=== PATIENT | male | born 1950 | race Caucasian/White ===

== ENCOUNTER 2017-07-22 05:46 | Inpatient (IN) | payer MEDICARE ==
[2017-07-22] VITALS (29 sets, daily range): BP systolic 107–151; BP diastolic 52–69; PULSE 50–130; RESP 14–50
[~2017-07-22] VITALS: Ht 182.9 cm; Wt 123.7 kg
[2017-07-22] MEDS ORDERED: CEFAZOLIN 2 GM/50 ML (PMX) 50 ML IVPB ONE (06:11)
[2017-07-22] MEDS ORDERED: LACTATED RINGER'S 1,000 ML IV* SCH (06:11)
--- NOTE | 2017-07-22 06:43 | HPN ---
Date/Time of Note Date/Time of Note DATE: 07/22/17 TIME: 06:43 Interval H&P Admission Note Pt. seen H&P reviewed: No system changes KEVEN BAZAN MD Jul 22, 2017 06:43
[2017-07-22] MEDS ORDERED: SUCCINYLCHOLINE CHLORIDE 100 MG/5 ML SYG IV ONE (07:00)
[2017-07-22] MEDS ORDERED: ROCURONIUM 50 MG INJ ONE ×2 (07:00→07:27)
[2017-07-22] MEDS ORDERED: ACETAMINOPHEN 1000 MG/100 ML IVPB ONE (07:00)
[2017-07-22] MEDS ORDERED: GELATIN SIZE 100 SPONGE ONE (07:02)
[2017-07-22] MEDS ORDERED: THROMBIN 5000 UNIT VIAL ONE ×2 (07:03→09:00)
[2017-07-22] MEDS ORDERED: BUPIVACAINE 0.5%/EPI (SDV) 30 ML INJ ONE ×2 (07:03→13:49)
[2017-07-22] MEDS ORDERED: LIDOCAINE 2%/EPI 30 ML INJ ONE (07:07)
[2017-07-22] MEDS ORDERED: METF500T PO (07:18)
[2017-07-22] MEDS ORDERED: PREG50CA PO (07:18)
[2017-07-22] MEDS ORDERED: HYDR-902 PO (07:18)
[2017-07-22] MEDS ORDERED: AMLO-314 PO (07:18)
[2017-07-22] MEDS ORDERED: [UNRECOGNIZED DRUG - CODE] PO (07:18)
[2017-07-22] MEDS ORDERED: POLYMYXIN/BACITRACIN 1L IRRIG ONE (07:20)
[2017-07-22] MEDS ORDERED: LIDOCAINE 1% (MDV) 20 ML INJ ONE (07:27)
[2017-07-22] MEDS ORDERED: PROPOFOL 20 ML ONE (07:27)
[2017-07-22] MEDS ORDERED: HEMOSTATIC MATRIX SYG ZFS ONE (09:52)
[2017-07-22] MEDS ORDERED: METOCLOPRAMIDE 10 MG INJ ONE (10:08)
[2017-07-22] MEDS ORDERED: ONDANSETRON 4 MG INJ ONE (10:08)
[2017-07-22] MEDS ORDERED: FAMOTIDINE 20 MG INJ ONE (10:09)
[2017-07-22] MEDS ORDERED: ONDANSETRON 4 MG INJ IV PRN ×2 (12:30→14:30)
[2017-07-22] MEDS ORDERED: hydrALAzine 20 MG INJ IV PRN (12:30)
[2017-07-22] MEDS ORDERED: HYDROmorphONE (0.2 MG/ML) 10ML SYG IV PRN (12:30)
[2017-07-22] MEDS ORDERED: MEPERIDINE 25 MG INJ IV PRN (12:30)
[2017-07-22] MEDS ORDERED: HALOPERIDOL 5 MG INJ IV PRN (12:30)
[2017-07-22] MEDS ORDERED: LABETALOL HCL 20MG INJ IV PRN (12:30)
[2017-07-22] MEDS ORDERED: PROCHLORPERAZINE 10 MG INJ IV PRN (12:30)
[2017-07-22] MEDS ORDERED: SUGAMMADEX SODIUM 200 MG/2 ML VIAL IV ONE (14:04)
[2017-07-22] MEDS ORDERED: CEFAZOLIN 1 GM INJ ONE (14:12)
[2017-07-22] MEDS ORDERED: DEXTROSE 5%-0.45% NACL 1,000 ML IV SCH (14:28)
[2017-07-22] MEDS ORDERED: NALOXONE (0.4 MG/ML) INJ IV PRN (14:30)
[2017-07-22] MEDS ORDERED: ZOLPIDEM 5 MG TAB PO PRN (14:30)
[2017-07-22] MEDS ORDERED: HYDROmorphONE 0.2 MG/ML PCA IV SCH (14:30)
[2017-07-22] MEDS ORDERED: PROCHLORPERAZINE 10 MG INJ IM PRN (14:30)
[2017-07-22] MEDS ORDERED: NACL 0.9% 3 ML SYG IV SCH (14:30)
--- NOTE | 2017-07-22 14:44 | SIPON ---
Date/Time of Note Date/Time of Note DATE: 07/22/17 TIME: 14:38 Operative Report Preoperative Diagnosis Spinal stenosis, L2-L3, L3-L4, right greater than left. Postoperative Diagnosis Same Operation/Procedure Performed Lumbar yang, L2-L3, L3-L4, bilat, from R MIS approach Surgeon see signature line television production assistant Bernadette Anesthesia: general Estimated blood loss: 0 - 10 ml's Transfusion Required none Specimen none Grafts/Implants none Complications none KEVEN BAZAN MD Jul 22, 2017 14:44
[2017-07-22] MEDS: HYDROmorphONE (0.2 MG/ML) 10ML SYG IV PRN ×3 (14:47→15:06)
--- NOTE | 2017-07-22 14:58 | OPR ---
Date/Time of Note Date/Time of Note DATE: 07/22/17 TIME: 14:47 Operative Report Procedure Date: Jul 22, 2017 Preoperative Diagnosis Spinal stenosis, L2-L3, L3-L4, bilaterally right greater than left Postoperative Diagnosis Same as above Operation/Procedure Performed Lumbar laminectomy, L2-L3 L3-L4, bilateral, from right MIS paraspinal approach Surgeon see signature line City Collector Jj Fleming Anesthesia Type: general Estimated Blood Loss: 0 - 10 ml's Transfusion none Specimen none Grafts/Implants none Tubes/Drains none Complications none Pt Condition Post Procedure: stable Disposition: PACU Indications Intractable leg pain, right leg primarily. Procedure Description The patient was identified in the holding unit and his questions were answered. He was taken to the operating room and given a general endotracheal anesthetic. Appropriate lines were placed. Neural monitoring was commenced. He was carefully positioned on the Nazario spinal table. Several image intensification x-rays were taken to localize the appropriate skin incision. He was then prepped and draped in the usual manner. From 3 cm to the right of the midline, a 3 cm incision was made and taken down to the fascia. The fascia was divided sharply. I used blunt dissection to find the L2-L3 right-sided facet. I then used a docking pin. And dilators. I placed a 7 cm expandable tube into place and fastened it. X-rays were taken to confirm that this was the L2-L3 location. The facet joint was then isolated medially and drilled down to the lamina. Beginning inferiorly the lamina was drilled along with a inferior facet of L2. This was taken down to the ligamentum flavum and out as far as the pedicle. The superior facet was isolated and Kerrison punches were used to go laterally to the level of the pedicle. Laminectomy was carried out proximally until well above the disc space, above where the ligamentum flavum ended. Drilling was carried out across the midline. The ligamentum flavum was left in place while the bony work was being done. Ligamentum flavum was then removed except for small portions at the periphery of the decompression. Once this happened to the neural signaling started to improve dramatically. The remaining ligament under the facet, inferiorly to the bottom of the pedicle and superiorly to the top of the arch of tube was removed. Additional ligament well across the midline was removed. By this time this signals at L2 and L3 had returned to normal. This portion of the wound was irrigated and Surgifoam was inserted in small quantities. The retractor was then carefully repositioned over the L3-L4 interspace again on the right side. This was fairly laborious because we were desirous of keeping the skin incision at 3 cm. The L3-L4 facet was visualized, location was confirmed, and the medialmost portion of the was drilled off as well as a portion of the inferior facet in total. Drill was then used to go distally on L 4 to the area of the pedicle, laterally to the pedicle, and superiorly to well above a large bulging hard disc. Bony work was then taken across the midline. The ligament was then removed in large pieces and the peripheral areas of the laminotomy were cleansed of ligament and 4 directions. During this time we were told that the neural monitoring returned to normal at the L4 level. The wound was then irrigated copiously. Number 1 Vicryl was used for the fascia. Both layers of the fascia were closed together with [id number]. Subcutaneous tissue was closed with 0 Vicryl. 2 oh was used for subcuticular layer. Monocryl was used for the skin and this was reinforced with Dermabond. The patient tolerated the procedure well. We were told that the various counts were correct. Blood loss was less than 10 cc there were no complications KEVEN BAZAN MD Jul 22, 2017 14:58
[2017-07-22] MEDS ORDERED: FENTAnyl 50 MCG/ML VIAL ONE (15:08)
[2017-07-22] MEDS: FENTAnyl 50 MCG/ML VIAL IV PRN ×2 (15:26→16:01)
[2017-07-22] MEDS ORDERED: FENTAnyl 50 MCG/ML VIAL IV PRN ×2 (15:30)
--- NOTE | 2017-07-22 16:22 | RADRPT ---
PROCEDURE: XR Chest. CLINICAL INDICATION: central line placement ( patient in PACU ) TECHNIQUE: AP view of the chest were obtained. COMPARISON: None. FINDINGS: There are low lung volumes bilaterally causing exaggeration of the cardiac silhouette . There is bib asilar atelectasis. No evidence of pleural effusion or pneumothorax. There is a right internal jugul ar central venous catheter with the tip in the right atrium. IMPRESSION: Right internal jugular central venous catheter within the right atrium. No evidence of pneumothorax. Low lung volumes and bilateral basilar compressive atelectasis. RPTAT: GG .Mabel Gutiérrez MD, Date Time Electronically viewed and signed by .Mabel Gutiérrez MD, MD on 07/22/2017 16:22 .G/
--- NOTE | 2017-07-22 16:34 | RADRPT ---
PROCEDURE: Intraoperative imaging of the lumbar spine with fluoroscopy. CLINICAL INDICATION: Back pain. Intraoperative. TECHNIQUE: 15 images of the lumbar spine were obtained in the operating room with an image intensi fier. No radiologist was in attendance. Fluoroscopy time is 33 seconds. COMPARISON: No prior study is available for comparison. FINDINGS: Images demonstrate multiple surgical instruments overlying the lumbar spine posteriorly. IMPRESSION: 1. Intraoperative imaging of the lumbar spine. RPTAT: QQ .Félix Escobar MD, MD Date Time Electronically viewed and signed by .Félix Escobar MD, on 07/22/2017 16:34 .R/
[2017-07-22] MEDS: INSULIN ASPART [NOVOLOG] 3 ML PEN SC SCH ×2 (17:55→21:00)
[2017-07-22] MEDS ORDERED: GLUCOSE GEL 15 GRAM TUBE BUCCAL PRN (18:00)
[2017-07-22] MEDS ORDERED: GLUCAGON 1 MG INJ IM PRN (18:00)
[2017-07-22] MEDS ORDERED: GLUCOSE GEL 15 GRAM TUBE PO PRN ×2 (18:00)
[2017-07-22] MEDS ORDERED: DEXTROSE 50% 50 ML SYRINGE IV PRN ×2 (18:00)
[2017-07-22] MEDS: SOD CHLORIDE 0.45% 1,000 ML IV SCH (18:41)
[2017-07-22] MEDS: CEFAZOLIN 1 GM/50 ML (PMX) 50 ML IVPB SCH (18:42)
[2017-07-22] MEDS: ACCU-CHEK XX SCH (19:55)
[2017-07-22] MEDS: PREGABALIN 25 MG CAP PO SCH (20:47)
[2017-07-22] MEDS: ACETAMINOPHEN 325 MG TAB PO PRN (22:40)
[2017-07-23] MEDS: CEFAZOLIN 1 GM/50 ML (PMX) 50 ML IVPB SCH ×3 (00:22→12:18)
[2017-07-23 00:24] VITALS: BP 130/68; RESP 18
[2017-07-23] MEDS: ACCU-CHEK XX SCH ×4 (02:00→19:28)
[2017-07-23] MEDS ORDERED: ACCU-CHEK XX SCH (02:00)
[2017-07-23] MEDS ORDERED: ALPRAZOLAM 0.25 MG TAB PO ONE (04:00)
[2017-07-23] MEDS: SOD CHLORIDE 0.45% 1,000 ML IV SCH (04:59)
[2017-07-23 05:00] VITALS: BP 143/67; PULSE 76; RESP 18
[2017-07-23 08:00] VITALS: BP 147/67; PULSE 81; RESP 17
[2017-07-23] MEDS: HYDROCODONE/APAP (10/325) TAB PO PRN ×2 (08:51→13:08)
[2017-07-23] MEDS: HYDROCHLOROTHIAZIDE 25 MG TAB PO SCH (08:51)
[2017-07-23] MEDS: VALSARTAN 160 MG TAB PO SCH (08:51)
[2017-07-23] MEDS: ASCORBIC ACID 500 MG TAB PO SCH ×2 (08:51→20:45)
[2017-07-23] MEDS: metFORMIN 500 MG TAB PO SCH (08:51)
[2017-07-23] MEDS: DOCUSATE SODIUM 100 MG CAP PO SCH ×2 (08:51→20:44)
[2017-07-23] MEDS: AMLODIPINE 10 MG TAB PO SCH (08:51)
[2017-07-23] MEDS: PREGABALIN 25 MG CAP PO SCH ×2 (08:52→20:45)
[2017-07-23] MEDS: INSULIN ASPART [NOVOLOG] 3 ML PEN SC SCH ×4 (09:10→20:47)
--- NOTE | 2017-07-23 13:48 | CONS ---
Date/Time of Note Date/Time of Note DATE: 07/23/17 TIME: 13:38 Assessment/Plan Assessment/Plan Problems: (1) Migraine syndrome Status: Chronic Comment: This gentleman has never received prophylactic therapy and has more than 10 headache days per month. As such this gives us an opportunity to treat not only his sciatica from the pinched nerves in his back but also his migraine syndrome. Lyrica would not be my first choice here and given his body habitus I believe the topiramate would actually be an appropriate candidate medication here. In addition to that we can add in a try cyclic antidepressant and a subsequent time using drugs such as desipramine or any imipramine as indicated. (2) S/P lumbar laminectomy Onset Date: ~ 07/22/2017 Status: Acute Comment: Postoperatively he is doing well without complications. Because the extent of the surgery is going to be somewhat slow to get up and around should ultimately be a good rehabilitation candidate (3) Obstructive sleep apnea hypopnea, moderate Status: Chronic Comment: Noted. He declines to have a CPAP here in the hospital. (4) Essential hypertension Status: Chronic Comment: We will continue him on his medications here the particular product and uses a combination of medications that are available on here formulary specifically amlodipine valsartan and hydrochlorothiazide (5) Diabetes mellitus type 2 in obese Status: Chronic Comment: He is stable on medication regimen we took the dextrose out of his IV fluids (6) Obesity (BMI 30-39.9) Status: Chronic Comment: Calorie restriction diet Consultation Date/Type/Reason Admit Date/Time Jul 22, 2017 at 05:46 Date of Consultation: Jul 22, 2017 Type of Consultation: Internal medicine-endocrinolog Reason for Consultation Postoperative medical management of medical problems Referring Provider: KEVEN BAZAN MD Hx of Present Illness 66-year-old gentleman status post spinal surgery. He is seen on the floor after surgery. Please note that he was cleared for surgery his primary care physicians near his home. Constitutional: no complaints Eyes: no complaints ENT: no complaints Respiratory: no complaints Cardiovascular: no complaints Gastrointestinal: no complaints Genitourinary: no complaints Musculoskeletal: back pain Skin: no complaints Neurologic: other Endocrine: no complaints Lymphatic: no complaints Psychological: nl mood/affect, no complaints Immunologic: no complaints Past Medical History Medical History: diabetes, high cholesterol, hypertension, other (Migraine syndrome; diabetic peripheral neuropathy; obstructive sleep apnea; obesity; usual childhood diseases; history chickenpox) Past Surgical History Past Surgical Hx: cholecystectomy, other (Status post bilateral carpal tunnel release twice on the right-hand side; status post left shoulder arthroscopy;) Family History Significant Family History: cancer, diabetes, hypertension Social History Alcohol Use: none Smoking Status: Former smoker Drug Use: none Other Social History 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 and lives with his spouse Exam/Review of Systems Vital Signs Vitals Vital Signs Date Time Temp Pulse Resp B/P Pulse Ox O2 Delivery O2 Flow Rate FiO2 07/23/17 08:00 98.4 81 17 147/67 97 Room Air 07/22/17 20:00 2.0 Intake and Output 07/22/17 07/22/17 07/23/17 15:00 23:00 07:00 Intake Total 3050 ml 1600 ml Output Total 650 ml 550 ml 1500 ml Balance 2400 ml -550 ml 100 ml Exam Constitutional: alert, oriented Head: atraumatic, normocephalic Eyes: EOMI, PERRL, nl conjunctiva, nl lids, nl sclera ENMT: mucosa pink and moist, nl external ears & nose, nl lips & teeth, nl nasal mucosa & septum Neck: non-tender, other (Right neck internal jugular central venous catheter.) , supple Respiratory: clear to auscultation, normal air movement Cardiovascular: nl pulses, regular rate and rhythm Gastrointestinal: nl liver, spleen, non-tender, soft Extremities: normal pulses Neurological: ENROBING MACHINE FEEDER II-XII intact, nl mental status, nl speech, other (Able to move lower extremities with limitations.) Skin: nl turgor, rash or lesions Results Results 24 hrs Laboratory Tests Test 07/22/17 18:49 07/22/17 20:46 07/23/17 08:54 07/23/17 10:50 Bedside Glucose 164 159 152 177 Test 07/23/17 12:56 Bedside Glucose 139 Medications Medications Outpatient medication regimen Metformin 500 twice daily; Exforge nightly; hydrocodone as needed; Lyrica 50 mg bid Current Medications Lactated Ringer's (Lr) 1,000 ml @ 25 mls/hr Q24H IV* ; Start 07/22/17 at 06:11 ; Stop 07/23/17 at 22:10 Zolpidem Tartrate (Ambien) 5 mg HS PRN PO INSOMNIA; Start 07/22/17 at 14:30 Prochlorperazine (Compazine Inj) 10 mg Q4H PRN IM NAUSEA AND/OR VOMITING; Start 07/22/17 at 14:30 Ondansetron HCl (Zofran Inj) 4 mg Q6H PRN IV NAUSEA AND/OR VOMITING; Start 07/22/17 at 14:30 Docusate Sodium (Colace) 100 mg BID PO Last administered on 07/23/17 08:51; Admin Dose 100 MG; Start 07/23/17 at 09:00 Acetaminophen (Tylenol Tab) 650 mg Q4H PRN PO TEMP GREATER THAN 101F OR MCKENNA Last administered on 07/22/17 22:40; Admin Dose 650 MG; Start 07/22/17 at 14:30 Ascorbic Acid (Vitamin C) 1,000 mg BID PO Last administered on 07/23/17 08:51 ; Admin Dose 1,000 MG; Start 07/23/17 at 09:00 Hydromorphone HCl (Dilaudid INVERFORM MACHINE OPERATOR) Q4PCA IV Last administered on 07/22/17 15:21 ; Admin Dose 6 MG; Start 07/22/17 at 14:30 Naloxone HCl (Narcan) 0.2 mg Q2M PRN IV RR 8 BREATHS/MIN OR LESS; Start at 14:30 Diagnostic Test (Pha) (Accu-Chek) 1 ea 02 XX ; Start 07/23/17 at 02:00 Pregabalin (Lyrica) 50 mg BID PO Last administered on 07/23/17 08:52; Admin Dose 50 MG; Start 07/22/17 at 21:00 Miscellaneous Information 1 ea NOTE XX ; Start 07/22/17 at 18:00 Glucose (Glutose) 15 gm Q15M PRN PO DECREASED GLUCOSE; Start 07/22/17 at 18:00 Glucose (Glutose) 22.5 gm Q15M PRN PO DECREASED GLUCOSE; Start 07/22/17 at 18: 00 Dextrose (D50w Syringe) 25 ml Q15M PRN IV DECREASED GLUCOSE; Start 07/22/17 at 18:00 Dextrose (D50w Syringe) 50 ml Q15M PRN IV DECREASED GLUCOSE; Start 07/22/17 at 18:00 Glucagon (Glucagen) 1 mg Q15M PRN IM DECREASED GLUCOSE; Start 07/22/17 at 18:00 Glucose (Glutose) 15 gm Q15M PRN BUCCAL DECREASED GLUCOSE; Start 07/22/17 at 18 :00 Amlodipine Besylate (Norvasc) 10 mg DAILY PO Last administered on 07/23/17 08: 51; Admin Dose 10 MG; Start 07/23/17 at 09:00 Valsartan (Diovan) 320 mg DAILY PO Last administered on 07/23/17 08:51; Admin Dose 320 MG; Start 07/23/17 at 09:00 Hydrochlorothiazide (Hydrochlorothiazide) 25 mg DAILY PO Last administered on 07/23/17 08:51; Admin Dose 25 MG; Start 07/23/17 at 09:00 Acetaminophen/ Hydrocodone Bitart (Downs (10/325)) 1 tab Q4H PRN PO PAIN; Start 07/23/17 at 07:30 Acetaminophen/ Hydrocodone Bitart (Downs (10/325)) 2 tab Q4H PRN PO PAIN Last administered on 07/23/17 13:08; Admin Dose 2 TAB; Start 07/23/17 at 07:30 Copies To: CC: KEVEN BAZAN MD, JOSHUA A MD Jul 23, 2017 13:48
[2017-07-23] MEDS ORDERED: TOPIRAMATE 25 MG TAB PO ONE (14:00)
[2017-07-23] MEDS: oxyCODONE 5 MG TAB PO PRN ×2 (18:56→23:02)
[2017-07-23] MEDS: TOPIRAMATE 25 MG TAB PO SCH (20:44)
[2017-07-23 21:05] VITALS: BP 155/67; RESP 18
[2017-07-24] MEDS: HYDROCODONE/APAP (10/325) TAB PO PRN ×6 (00:43→21:36)
[2017-07-24] MEDS ORDERED: SUMATRIPTAN 50 MG TAB PO ONE (01:00)
[2017-07-24] MEDS ORDERED: ALPRAZOLAM 0.25 MG TAB PO ONE (01:00)
[2017-07-24] MEDS ORDERED: CEPASTAT LOZENGE MT PRN (01:00)
[2017-07-24] MEDS: ACCU-CHEK XX SCH ×4 (01:41→20:24)
[2017-07-24] MEDS: oxyCODONE 5 MG TAB PO PRN ×2 (03:03→07:12)
--- NOTE | 2017-07-24 07:14 | CONS ---
Date/Time of Note Date/Time of Note DATE: 07/24/17 TIME: 07:11 Assessment/Plan Assessment/Plan Chief Complaint/Hosp Course 66-year-old gentleman status post spinal surgery. He is seen on the floor after surgery. Please note that he was cleared for surgery his primary care physicians near his home. Problems: (1) Migraine syndrome Status: Chronic Comment: He is on topiramate successfully. He had a positive response to Imitrex last night. I have given him and his information about how to research treatments and therapeutics for migraine syndrome. Ultimately he should have his topiramate titrated and probably would actually do well to have a low dose of the try cyclic antidepressant such as imipramine 25 mg nightly. (2) S/P lumbar laminectomy Onset Date: ~ 07/22/2017 Status: Acute Comment: Recuperating from spinal surgery and progressing well. No apparent complications. (3) Obstructive sleep apnea hypopnea, moderate Status: Chronic Comment: Noted. (4) Essential hypertension Status: Chronic Comment: Adequate control. (5) Diabetes mellitus type 2 in obese Status: Chronic Comment: Adequate control. (6) Obesity (BMI 30-39.9) Status: Chronic Comment: Calorie restriction diet. In addition the topiramate for migraines will be of assistance here. Consultation Date/Type/Reason Admit Date/Time Jul 22, 2017 at 05:46 Initial Consult Date 07/22/17 Type of Consultation: Internal medicine-endocrinolog Reason for Consultation Postop assistance with diabetes mellitus type 2; migraine syndrome Referring Provider: KEVEN BAZAN MD 24 HR Interval Summary Free Text/Dictation Patient reports that his migraines have been running at her normal pace and he actually has uses narcotic pain medications for that as well as his postoperative pain. He has never ever had Imitrex before so we administered it last night Constitutional: no complaints Detailed Summary Respiratory: no complaints Cardiovascular: no complaints Gastrointestinal: no complaints Exam/Review of Systems Vital Signs Vitals Vital Signs Date Time Temp Pulse Resp B/P Pulse Ox O2 Delivery O2 Flow Rate FiO2 07/23/17 21:05 98.1 87 18 155/67 93 07/23/17 08:00 Room Air 07/22/17 20:00 2.0 Intake and Output 07/23/17 07/23/17 07/24/17 15:00 23:00 07:00 Intake Total 50 ml 800 ml Output Total 900 ml Balance 50 ml -100 ml Exam Constitutional: alert Head: atraumatic, normocephalic, other (Area of skin irritation where he had tape applied to his forehead) Respiratory: clear to auscultation, normal air movement Cardiovascular: nl pulses, regular rate and rhythm Gastrointestinal: nl liver, spleen, non-tender, soft Results Results 24 hrs Laboratory Tests Test 07/23/17 08:54 07/23/17 10:50 07/23/17 12:56 07/23/17 15:09 Bedside Glucose 152 177 139 156 Test 07/23/17 17:52 07/23/17 19:26 07/23/17 20:43 Bedside Glucose 131 164 132 Medications Medications Current Medications Zolpidem Tartrate (Ambien) 5 mg HS PRN PO INSOMNIA; Start 07/22/17 at 14:30 Prochlorperazine (Compazine Inj) 10 mg Q4H PRN IM NAUSEA AND/OR VOMITING; Start 07/22/17 at 14:30 Ondansetron HCl (Zofran Inj) 4 mg Q6H PRN IV NAUSEA AND/OR VOMITING; Start 07/22/17 at 14:30 Docusate Sodium (Colace) 100 mg BID PO Last administered on 07/23/17 20:44; Admin Dose 100 MG; Start 07/23/17 at 09:00 Acetaminophen (Tylenol Tab) 650 mg Q4H PRN PO TEMP GREATER THAN 101F OR MCKENNA Last administered on 07/22/17 22:40; Admin Dose 650 MG; Start 07/22/17 at 14:30 Ascorbic Acid (Vitamin C) 1,000 mg BID PO Last administered on 07/23/17 20:45 ; Admin Dose 1,000 MG; Start 07/23/17 at 09:00 Hydromorphone HCl (Dilaudid GARBAGE PICK UP MAN) Q4PCA IV Last administered on 07/22/17 15:21 ; Admin Dose 6 MG; Start 07/22/17 at 14:30 Naloxone HCl (Narcan) 0.2 mg Q2M PRN IV RR 8 BREATHS/MIN OR LESS; Start at 14:30 Diagnostic Test (Pha) (Accu-Chek) 1 ea 02 XX ; Start 07/23/17 at 02:00 Pregabalin (Lyrica) 50 mg BID PO Last administered on 07/23/17 20:45; Admin Dose 50 MG; Start 07/22/17 at 21:00 Miscellaneous Information 1 ea NOTE XX ; Start 07/22/17 at 18:00 Glucose (Glutose) 15 gm Q15M PRN PO DECREASED GLUCOSE; Start 07/22/17 at 18:00 Glucose (Glutose) 22.5 gm Q15M PRN PO DECREASED GLUCOSE; Start 07/22/17 at 18: 00 Dextrose (D50w Syringe) 25 ml Q15M PRN IV DECREASED GLUCOSE; Start 07/22/17 at 18:00 Dextrose (D50w Syringe) 50 ml Q15M PRN IV DECREASED GLUCOSE; Start 07/22/17 at 18:00 Glucagon (Glucagen) 1 mg Q15M PRN IM DECREASED GLUCOSE; Start 07/22/17 at 18:00 Glucose (Glutose) 15 gm Q15M PRN BUCCAL DECREASED GLUCOSE; Start 07/22/17 at 18 :00 Amlodipine Besylate (Norvasc) 10 mg DAILY PO Last administered on 07/23/17 08: 51; Admin Dose 10 MG; Start 07/23/17 at 09:00 Valsartan (Diovan) 320 mg DAILY PO Last administered on 07/23/17 08:51; Admin Dose 320 MG; Start 07/23/17 at 09:00 Hydrochlorothiazide (Hydrochlorothiazide) 25 mg DAILY PO Last administered on 07/23/17 08:51; Admin Dose 25 MG; Start 07/23/17 at 09:00 Acetaminophen/ Hydrocodone Bitart ([place]son (10/325)) 1 tab Q4H PRN PO PAIN; Start 07/23/17 at 07:30 Acetaminophen/ Hydrocodone Bitart ([place]son (10/325)) 2 tab Q4H PRN PO PAIN Last administered on 07/24/17 05:03; Admin Dose 2 TAB; Start 07/23/17 at 07:30 Topiramate (Topamax) 25 mg QHS PO Last administered on 07/23/17 20:44; Admin Dose 25 MG; Start 07/23/17 at 21:00 Oxycodone HCl (Roxicodone) 10 mg Q4H PRN PO PAIN Last administered on 03:03; Admin Dose 10 MG; Start 07/23/17 at 15:00 Phenol (Cepastat Lozenge) 1 lozenge Q1H PRN MT SORE THROAT Last administered on 07/24/17t 00:48; Admin Dose 1 LOZENGE; Start 07/24/17 at 01:00 CHIRAG GARCIA MD Jul 24, 2017 07:14
[2017-07-24] MEDS: INSULIN ASPART [NOVOLOG] 3 ML PEN SC SCH ×4 (07:50→21:00)
[2017-07-24 08:34] VITALS: BP 128/76; PULSE 70; RESP 17
[2017-07-24] MEDS: PREGABALIN 25 MG CAP PO SCH ×2 (08:36→20:37)
[2017-07-24] MEDS: ASCORBIC ACID 500 MG TAB PO SCH ×2 (08:36→20:38)
[2017-07-24] MEDS: VALSARTAN 160 MG TAB PO SCH (08:36)
[2017-07-24] MEDS: AMLODIPINE 10 MG TAB PO SCH (08:36)
[2017-07-24] MEDS: DOCUSATE SODIUM 100 MG CAP PO SCH ×2 (08:36→20:39)
[2017-07-24] MEDS: HYDROCHLOROTHIAZIDE 25 MG TAB PO SCH (08:37)
[2017-07-24] MEDS: metFORMIN 500 MG TAB PO SCH (08:38)
[2017-07-24 14:00] VITALS: BP 109/51; RESP 18
[2017-07-24] MEDS: TOPIRAMATE 25 MG TAB PO SCH (20:37)
[2017-07-24] MEDS: ALPRAZOLAM 0.25 MG TAB PO PRN (20:38)
[2017-07-24 20:52] VITALS: BP 120/69; RESP 20
[2017-07-24] MEDS: IMIPRAMINE 25 MG TAB PO SCH (21:00)
[2017-07-25] MEDS: ACCU-CHEK XX SCH ×2 (02:00→09:50)
[2017-07-25 02:31] VITALS: BP 125/60; RESP 19
[2017-07-25] MEDS: HYDROCODONE/APAP (10/325) TAB PO PRN ×2 (07:04→17:42)
[2017-07-25] MEDS: INSULIN ASPART [NOVOLOG] 3 ML PEN SC SCH ×4 (07:50→20:38)
[2017-07-25 08:00] VITALS: BP 154/70; RESP 19
[2017-07-25] MEDS: PREGABALIN 25 MG CAP PO SCH ×2 (09:00→20:37)
[2017-07-25] MEDS: DOCUSATE SODIUM 100 MG CAP PO SCH ×2 (09:00→20:37)
[2017-07-25] MEDS: metFORMIN 500 MG TAB PO SCH (09:00)
[2017-07-25] MEDS: ASCORBIC ACID 500 MG TAB PO SCH ×2 (09:00→20:36)
[2017-07-25] MEDS: AMLODIPINE 10 MG TAB PO SCH (09:01)
[2017-07-25] MEDS: HYDROCHLOROTHIAZIDE 25 MG TAB PO SCH (09:01)
[2017-07-25] MEDS: VALSARTAN 160 MG TAB PO SCH (09:02)
--- NOTE | 2017-07-25 09:02 | PN ---
Date/Time of Note Date/Time of Note DATE: 07/25/17 TIME: 08:57 Assessment/Plan VTE Prophylaxis VTE Prophylaxis Intervention: heparin Lines/Catheters IV C[facility]ter Type (from [facility]): Central Line Central line still needed: Yes Assessment/Plan Chief Complaint/Hosp Course 66-year-old gentleman status post spinal surgery. He is seen on the floor after surgery. Please note that he was cleared for surgery his primary care physicians near his home. Problems: (1) Osteoarthritis Status: Chronic Comment: Patient generally gets relief of this using naproxen at home. He is postop from back surgery. I will defer off to Dr. Alarcon whether or not he will give me permission to write for naproxen to help relieve this. Qualifiers: Osteoarthritis location: shoulder Osteoarthritis type: primary Laterality : bilateral Qualified Code: M19.011 - Primary osteoarthritis of both shoulders (2) Anxiety disorder Status: Chronic Comment: His anxiety disorder is still active although he is responding nicely to the alprazolam. We are getting him going with the imipramine as a try cyclic antidepressant for this. Please note this takes a few weeks to become effective. This should be effective both for his anxiety disorder and his migraine syndrome. Choice of imipramine is driven by his age as I believe the amitriptyline with playing havoc with his prostate Qualifiers: Anxiety disorder type: generalized anxiety disorder Qualified Code: F41.1 - Generalized anxiety disorder (3) Diabetes mellitus type 2 in obese Status: Chronic Comment: Adequate control. (4) Essential hypertension Status: Chronic Comment: Adequate control. (5) Obstructive sleep apnea hypopnea, moderate Status: Chronic Comment: Noted. (6) Migraine syndrome Status: Chronic Comment: He is tolerating the usage of the topiramate I am can up titrate this. Please note he has been on Lyrica for his lower extremities for some time and this should be titrated down starting in the near future. (7) S/P lumbar laminectomy Onset Date: ~ 07/22/2017 Status: Acute Comment: Coming along well postoperatively. He is a candidate for the acute rehabilitation unit and the issue about whether he will go there will be largely a social 1. Subjective 24 Hr Interval Summary Free Text/Dictation Patient reports he still has his morning headaches occasionally at 7 out of 10. This is actually slightly better than at home. Denies fevers chills sweats. He reports that he has a 95-year-old mother at home he needs to take care of but at the present time he does not think he could do it Constitutional: no complaints Respiratory: no complaints Cardiovascular: no complaints Gastrointestinal: no complaints Genitourinary: no complaints Musculoskeletal: back pain, other (Bilateral shoulder pain) Neurologic: headache Exam/Review of Systems Vital Signs Vitals Vital Signs Date Time Temp Pulse Resp B/P Pulse Ox O2 Delivery O2 Flow Rate FiO2 07/25/17 08:00 99.1 77 19 154/70 95 07/24/17 08:34 Room Air 07/22/17 20:00 2.0 Intake and Output 07/24/17 07/24/17 07/25/17 15:00 23:00 07:00 Intake Total 900 ml 850 ml Output Total 800 ml 1000 ml Balance 100 ml -150 ml Exam Constitutional: alert, oriented Neck: non-tender, supple Respiratory: clear to auscultation, normal air movement Cardiovascular: nl pulses, regular rate and rhythm Musculoskeletal: other (Limited range of motion at both shoulders right is worse than left) Results Results 24 hrs Laboratory Tests Test 07/24/17 10:04 07/24/17 12:24 07/24/17 14:24 07/24/17 17:37 Bedside Glucose 212 117 141 109 Test 07/24/17 20:15 07/25/17 08:39 Bedside Glucose 156 124 Medications Medications Current Medications Zolpidem Tartrate (Ambien) 5 mg HS PRN PO INSOMNIA Last administered on 20:37; Admin Dose 5 MG; Start 07/22/17 at 14:30 Prochlorperazine (Compazine Inj) 10 mg Q4H PRN IM NAUSEA AND/OR VOMITING; Start 07/22/17 at 14:30 Ondansetron HCl (Zofran Inj) 4 mg Q6H PRN IV NAUSEA AND/OR VOMITING; Start 07/22/17 at 14:30 Docusate Sodium (Colace) 100 mg BID PO Last administered on 07/24/17 20:39; Admin Dose 100 MG; Start 07/23/17 at 09:00 Acetaminophen (Tylenol Tab) 650 mg Q4H PRN PO TEMP GREATER THAN 101F OR MCKENNA Last administered on 07/22/17 22:40; Admin Dose 650 MG; Start 07/22/17 at 14:30 Ascorbic Acid (Vitamin C) 1,000 mg BID PO Last administered on 07/24/17 20:38 ; Admin Dose 1,000 MG; Start 07/23/17 at 09:00 Hydromorphone HCl (Dilaudid [employer]) Q4PCA IV Last administered on 07/22/17 15:21 ; Admin Dose 6 MG; Start 07/22/17 at 14:30 Naloxone HCl (Narcan) 0.2 mg Q2M PRN IV RR 8 BREATHS/MIN OR LESS; Start at 14:30 Diagnostic Test (Pha) (Accu-Chek) 1 ea 02 XX ; Start 07/23/17 at 02:00 Pregabalin (Lyrica) 50 mg BID PO Last administered on 07/24/17 20:37; Admin Dose 50 MG; Start 07/22/17 at 21:00 Miscellaneous Information 1 ea NOTE XX ; Start 07/22/17 at 18:00 Glucose (Glutose) 15 gm Q15M PRN PO DECREASED GLUCOSE; Start 07/22/17 at 18:00 Glucose (Glutose) 22.5 gm Q15M PRN PO DECREASED GLUCOSE; Start 07/22/17 at 18: 00 Dextrose (D50w Syringe) 25 ml Q15M PRN IV DECREASED GLUCOSE; Start 07/22/17 at 18:00 Dextrose (D50w Syringe) 50 ml Q15M PRN IV DECREASED GLUCOSE; Start 07/22/17 at 18:00 Glucagon (Glucagen) 1 mg Q15M PRN IM DECREASED GLUCOSE; Start 07/22/17 at 18:00 Glucose (Glutose) 15 gm Q15M PRN BUCCAL DECREASED GLUCOSE; Start 07/22/17 at 18 :00 Amlodipine Besylate (Norvasc) 10 mg DAILY PO Last administered on 07/24/17 08: 36; Admin Dose 10 MG; Start 07/23/17 at 09:00 Valsartan (Diovan) 320 mg DAILY PO Last administered on 07/24/17 08:36; Admin Dose 320 MG; Start 07/23/17 at 09:00 Hydrochlorothiazide (Hydrochlorothiazide) 25 mg DAILY PO Last administered on 07/24/17 08:37; Admin Dose 25 MG; Start 07/23/17 at 09:00 Acetaminophen/ Hydrocodone Bitart ([place] (10/325)) 1 tab Q4H PRN PO PAIN Last administered on 07/25/17 07:04; Admin Dose 1 TAB; Start 07/23/17 at 07:30 Acetaminophen/ Hydrocodone Bitart ([place] (10/325)) 2 tab Q4H PRN PO PAIN Last administered on 07/24/17 05:03; Admin Dose 2 TAB; Start 07/23/17 at 07:30 Topiramate (Topamax) 25 mg QHS PO Last administered on 07/24/17 20:37; Admin Dose 25 MG; Start 07/23/17 at 21:00 Oxycodone HCl (Roxicodone) 10 mg Q4H PRN PO PAIN Last administered on 07:12; Admin Dose 10 MG; Start 07/23/17 at 15:00 Phenol (Cepastat Lozenge) 1 lozenge Q1H PRN MT SORE THROAT Last administered on 07/24/17 00:48; Admin Dose 1 LOZENGE; Start 07/24/17 at 01:00 Imipramine HCl (Tofranil) 25 mg HS PO ; Start 07/24/17 at 21:00 Alprazolam (Xanax) 0.25 mg Q12H PRN PO ANXIETY Last administered on 07/24/17 20:38; Admin Dose 0.25 MG; Start 07/24/17 at 20:30 CHIRAG GARCIA MD Jul 25, 2017 09:02
[2017-07-25] MEDS: oxyCODONE 5 MG TAB PO PRN (10:34)
[2017-07-25] MEDS: NAPROXEN 500 MG TAB PO SCH ×2 (12:50→20:37)
[2017-07-25 14:00] VITALS: BP 120/61; RESP 18
[2017-07-25] MEDS: ALPRAZOLAM 0.25 MG TAB PO PRN (17:42)
[2017-07-25 20:22] VITALS: BP 103/55; RESP 19
[2017-07-25] MEDS: IMIPRAMINE 25 MG TAB PO SCH (20:37)
[2017-07-25] MEDS: TOPIRAMATE 25 MG TAB PO SCH (20:37)
[2017-07-26] MEDS: ACCU-CHEK XX SCH (02:00)
[2017-07-26 02:50] VITALS: BP 116/56; RESP 19
[2017-07-26] MEDS: ACETAMINOPHEN 325 MG TAB PO PRN (04:44)
[2017-07-26 05:11] LABS: BASOPHIL # 0.1 10^3/ul (0.0-0.1); BASOPHILS % 0.7 % (0.0-2.0); EOSINOPHILS # 0.2 10^3/ul (0.0-0.5); HEMATOCRIT 38.4 % (42.0-52.0); HEMOGLOBIN 13.1 g/dl (14.0-18.0); LYMPHOCYTES # 1.3 10^3/ul (0.8-2.9); MEAN CORPUSCULAR HEMOGLOBIN 30.8 pg (29.0-33.0); MEAN CORPUSCULAR HGB CONC 34.1 g/dl (32.0-37.0); MEAN CORPUSCULAR VOLUME 90.4 fl (82.0-101.0); MEAN PLATELET VOLUME 9.5 fl (7.4-10.4); MONOCYTE # 0.7 10^3/ul (0.3-0.9); MONOCYTES % 9.8 % (0.0-11.0); NEUTROPHIL # 4.8 10^3/ul (1.6-7.5); NEUTROPHILS % 68.1 % (39.0-77.0); PLATELET COUNT 245 10^3/UL (140-415); RED BLOOD COUNT 4.25 10^6/ul (4.70-6.10); RED CELL DISTRIBUTION WIDTH 15.8 % (11.5-14.5)
[2017-07-26 05:14] LABS: CHOL/HDL RATIO 5.2 RATIO; CHOLESTEROL 146 mg/dl (100-200); HDL CHOLESTEROL 28 mg/dl (30-78); TRIGLYCERIDES 119 mg/dl (0-149)
[2017-07-26 05:32] LABS: ALBUMIN 3.6 g/dl (3.3-4.9); ALBUMIN/GLOBULIN RATIO 1.05; BILIRUBIN,INDIRECT 0.5 mg/dl (0-1.1); BILIRUBIN,TOTAL 0.5 mg/dl (0.2-1.3); CALCIUM 9.4 mg/dl (8.4-10.2); CREATININE 1.29 mg/dl (0.61-1.24); POTASSIUM 4.2 mmol/L (3.5-5.1)
[2017-07-26] MEDS: ALPRAZOLAM 0.25 MG TAB PO PRN (06:23)
--- NOTE | 2017-07-26 07:30 | EN ---
Date/Time of Note Date/Time of Note DATE: 07/26/17 TIME: 07:20 Event Note Surgery Surgery Event Note ORS SPINE POD 4 S: Patient is asleep, having just gotten a Xanax, 0.25 mgm which is ordered q12h prn. Over the weekend, his biggest problems were headache, anxiety, and shoulder pain. Patient reported to me over weekend that his legs felt fine, and that he feeling back in them again. However, he reported, in addition to the above, that he was still having back pain. I changed the alternating schedule of hydrocodone and oxycodone to simply oxycodone and added the Naproxen as above. He progressed poorly in PT, but he reported to me that he thought his biggest problem was his shoulders, for which he takes Naproxen 220 mgm, 3 at a time, once or twice a day. Yesterday, I started him on Naproxen 375 mgm, TID. This morning, his reports that his shoulders are actually much better, but he still has headaches. O: Wound dry, and skin soft without erythema or induration. Patient asleep. I did not attempt to waken him at this time, as I will be back up in a couple of hours. A: Progress slower than expected. P: I will visit patient later this AM when he is more awake. Will reassess all his needs at that point. KEVEN BAZAN MD Jul 26, 2017 07:30
[2017-07-26 07:35] VITALS: BP 143/76; RESP 19
[2017-07-26] MEDS: INSULIN ASPART [NOVOLOG] 3 ML PEN SC SCH ×4 (07:50→21:00)
[2017-07-26] MEDS: DOCUSATE SODIUM 100 MG CAP PO SCH ×2 (08:58→20:20)
[2017-07-26] MEDS: NAPROXEN 500 MG TAB PO SCH ×3 (08:58→20:20)
[2017-07-26] MEDS: ASCORBIC ACID 500 MG TAB PO SCH ×2 (08:58→20:20)
[2017-07-26] MEDS: VALSARTAN 160 MG TAB PO SCH (08:58)
[2017-07-26] MEDS: metFORMIN 500 MG TAB PO SCH (08:58)
[2017-07-26] MEDS: PREGABALIN 25 MG CAP PO SCH (08:58)
[2017-07-26] MEDS: HYDROCHLOROTHIAZIDE 25 MG TAB PO SCH (08:59)
[2017-07-26] MEDS: AMLODIPINE 10 MG TAB PO SCH (09:03)
--- NOTE | 2017-07-26 13:44 | CONS ---
Date/Time of Note Date/Time of Note DATE: 07/26/17 TIME: 13:42 Assessment/Plan Assessment/Plan Chief Complaint/Hosp Course 66-year-old gentleman status post spinal surgery. He is seen on the floor after surgery. Please note that he was cleared for surgery his primary care physicians near his home. Problems: (1) S/P lumbar laminectomy Onset Date: ~ 07/22/2017 Status: Acute Comment: Regressing well physical therapy and much improved today. Possibly to the acute rehabilitation unit versus discharge to home with home health. This will be determined later today. Can BERTO Chauhan (2) Migraine syndrome Status: Chronic Comment: Improved with prophylactic medications. (3) Anxiety disorder Status: Chronic Comment: Improving with usage of a try cyclic antidepressant. Qualifiers: Anxiety disorder type: generalized anxiety disorder Qualified Code: F41.1 - Generalized anxiety disorder (4) Diabetes mellitus type 2 in obese Status: Chronic Comment: Excellent control and minimal medications no risk of hypoglycemia (5) Essential hypertension Status: Chronic Comment: Adequate control Consultation Date/Type/Reason Admit Date/Time Jul 22, 2017 at 05:46 Initial Consult Date 07/22/17 Type of Consultation: Internal medicine-endocrinolog Reason for Consultation Diabetes mellitus type 2; hypertension; migraine syndrome; anxiety disorder Referring Provider: KEVEN BAZAN MD 24 HR Interval Summary Free Text/Dictation Patient is actually significantly improved today Constitutional: no complaints Detailed Summary Respiratory: no complaints Cardiovascular: no complaints Gastrointestinal: no complaints Exam/Review of Systems Vital Signs Vitals Vital Signs Date Time Temp Pulse Resp B/P Pulse Ox O2 Delivery O2 Flow Rate FiO2 07/26/17 07:35 98.0 63 19 143/76 98 07/25/17 08:00 Nasal Cannula 2.0 Intake and Output 07/25/17 07/25/17 07/26/17 15:00 23:00 07:00 Intake Total 1200 ml 1000 ml Output Total 1400 ml 1500 ml Balance -200 ml -500 ml Exam Constitutional: alert, oriented Neck: non-tender, supple Respiratory: clear to auscultation, normal air movement Cardiovascular: nl pulses, regular rate and rhythm Gastrointestinal: nl liver, spleen, non-tender, soft Results Result Diagram: 07/26/17 0416 07/26/17 0416 Results 24 hrs Laboratory Tests Test 07/25/17 17:37 07/25/17 20:36 07/26/17 04:16 07/26/17 07:06 Bedside Glucose 116 128 White Blood Count 7.0 Red Blood Count 4.25 L Hemoglobin 13.1 L Hematocrit 38.4 L Mean Corpuscular Volume 90.4 Mean Corpuscular Hemoglobin 30.8 Mean Corpuscular Hemoglobin Concent 34.1 Red Cell Distribution Width 15.8 H Platelet Count 245 Mean Platelet Volume 9.5 Neutrophils % 68.1 Lymphocytes % 18.0 Monocytes % 9.8 Eosinophils % 3.0 Basophils % 0.7 Nucleated Red Blood Cells % 0.0 Neutrophils # 4.8 Lymphocytes # 1.3 Monocytes # 0.7 Eosinophils # 0.2 Basophils # 0.1 Nucleated Red Blood Cells # 0.0 Sodium Level 137 Potassium Level 4.2 Chloride Level 101 Carbon Dioxide Level 27 Anion Gap 13 Blood Urea Nitrogen 33 H Creatinine 1.29 H Glucose Level 114 Calcium Level 9.4 Total Bilirubin 0.5 Direct Bilirubin 0.00 Indirect Bilirubin 0.5 Aspartate Amino Transf (AST/SGOT) 30 Alanine Aminotransferase (ALT/SGPT) 64 Alkaline Phosphatase 112 Total Protein 7.0 Albumin 3.6 Globulin 3.40 H Albumin/Globulin Ratio 1.05 Triglycerides Level 119 Cholesterol Level 146 LDL Cholesterol, Calculated 94 HDL Cholesterol 28 L Cholesterol/HDL Ratio 5.2 Thyroid Stimulating Hormone (TSH) 1.760 Hepatitis B Surface Antigen NEGATIVE Hepatitis C Antibody NEGATIVE Lab Scanned Report REFERENCE LAB Test 07/26/17 08:34 07/26/17 12:11 Bedside Glucose 116 125 Medications Medications Current Medications Zolpidem Tartrate (Ambien) 5 mg HS PRN PO INSOMNIA Last administered on 20:37; Admin Dose 5 MG; Start 07/22/17 at 14:30 Prochlorperazine (Compazine Inj) 10 mg Q4H PRN IM NAUSEA AND/OR VOMITING; Start 07/22/17 at 14:30 Ondansetron HCl (Zofran Inj) 4 mg Q6H PRN IV NAUSEA AND/OR VOMITING; Start 07/22/17 at 14:30 Docusate Sodium (Colace) 100 mg BID PO Last administered on 07/26/17 08:58; Admin Dose 100 MG; Start 07/23/17 at 09:00 Acetaminophen (Tylenol Tab) 650 mg Q4H PRN PO TEMP GREATER THAN 101F OR MCKENNA Last administered on 07/26/17 04:44; Admin Dose 650 MG; Start 07/22/17 at 14:30 Ascorbic Acid (Vitamin C) 1,000 mg BID PO Last administered on 07/26/17 08:58 ; Admin Dose 1,000 MG; Start 07/23/17 at 09:00 Hydromorphone HCl (Dilaudid [employer]) Q4PCA IV Last administered on 07/22/17 15:21 ; Admin Dose 6 MG; Start 07/22/17 at 14:30 Naloxone HCl (Narcan) 0.2 mg Q2M PRN IV RR 8 BREATHS/MIN OR LESS; Start at 14:30 Diagnostic Test (Pha) (Accu-Chek) 1 ea 02 XX ; Start 07/23/17 at 02:00 Pregabalin (Lyrica) 50 mg BID PO Last administered on 07/26/17 08:58; Admin Dose 50 MG; Start 07/22/17 at 21:00 Miscellaneous Information 1 ea NOTE XX ; Start 07/22/17 at 18:00 Glucose (Glutose) 15 gm Q15M PRN PO DECREASED GLUCOSE; Start 07/22/17 at 18:00 Glucose (Glutose) 22.5 gm Q15M PRN PO DECREASED GLUCOSE; Start 07/22/17 at 18: 00 Dextrose (D50w Syringe) 25 ml Q15M PRN IV DECREASED GLUCOSE; Start 07/22/17 at 18:00 Dextrose (D50w Syringe) 50 ml Q15M PRN IV DECREASED GLUCOSE; Start 07/22/17 at 18:00 Glucagon (Glucagen) 1 mg Q15M PRN IM DECREASED GLUCOSE; Start 07/22/17 at 18:00 Glucose (Glutose) 15 gm Q15M PRN BUCCAL DECREASED GLUCOSE; Start 07/22/17 at 18 :00 Amlodipine Besylate (Norvasc) 10 mg DAILY PO Last administered on 07/26/17 09: 03; Admin Dose 10 MG; Start 07/23/17 at 09:00 Valsartan (Diovan) 320 mg DAILY PO Last administered on 07/26/17 08:58; Admin Dose 320 MG; Start 07/23/17 at 09:00 Hydrochlorothiazide (Hydrochlorothiazide) 25 mg DAILY PO Last administered on 07/26/17 08:59; Admin Dose 25 MG; Start 07/23/17 at 09:00 Acetaminophen/ Hydrocodone Bitart ([place] (10/325)) 1 tab Q4H PRN PO PAIN Last administered on 07/25/17 07:04; Admin Dose 1 TAB; Start 07/23/17 at 07:30 Acetaminophen/ Hydrocodone Bitart ([place] (10/325)) 2 tab Q4H PRN PO PAIN Last administered on 07/25/17 17:42; Admin Dose 2 TAB; Start 07/23/17 at 07:30 Oxycodone HCl (Roxicodone) 10 mg Q4H PRN PO PAIN Last administered on 10:34; Admin Dose 10 MG; Start 07/23/17 at 15:00 Phenol (Cepastat Lozenge) 1 lozenge Q1H PRN MT SORE THROAT Last administered on 07/24/17 00:48; Admin Dose 1 LOZENGE; Start 07/24/17 at 01:00 Imipramine HCl (Tofranil) 25 mg HS PO Last administered on 07/25/17 20:37; Admin Dose 25 MG; Start 07/24/17 at 21:00 Alprazolam (Xanax) 0.25 mg Q12H PRN PO ANXIETY Last administered on 07/26/17 06:23; Admin Dose 0.25 MG; Start 07/24/17 at 20:30 Topiramate (Topamax) 50 mg QHS PO Last administered on 07/25/17 20:37; Admin Dose 50 MG; Start 07/25/17 at 21:00 Naproxen (Naprosyn) 500 mg TID PO Last administered on 07/26/17 13:06; Admin Dose 500 MG; Start 07/25/17 at 13:00 CHIRAG GARCIA MD Jul 26, 2017 13:44
[2017-07-26 19:40] VITALS: BP 113/57; RESP 18
[2017-07-26] MEDS: TOPIRAMATE 25 MG TAB PO SCH (20:21)
[2017-07-26] MEDS: HYDROCODONE/APAP (10/325) TAB PO PRN (21:29)
[2017-07-26] MEDS: IMIPRAMINE 25 MG TAB PO SCH (21:30)
[2017-07-27 02:00] VITALS: BP 122/60; PULSE 59; RESP 18
[2017-07-27] MEDS: ACCU-CHEK XX SCH (02:00)
[2017-07-27] MEDS: HYDROCODONE/APAP (10/325) TAB PO PRN ×3 (02:32→14:07)
[2017-07-27 07:48] VITALS: BP 133/63; RESP 18
[2017-07-27] MEDS: INSULIN ASPART [NOVOLOG] 3 ML PEN SC SCH ×2 (07:50→11:40)
[2017-07-27] MEDS: DOCUSATE SODIUM 100 MG CAP PO SCH (08:32)
[2017-07-27] MEDS: metFORMIN 500 MG TAB PO SCH (08:32)
[2017-07-27] MEDS: NAPROXEN 500 MG TAB PO SCH ×2 (08:33→14:07)
[2017-07-27] MEDS: VALSARTAN 160 MG TAB PO SCH (08:33)
[2017-07-27] MEDS: ASCORBIC ACID 500 MG TAB PO SCH (08:33)
[2017-07-27] MEDS: HYDROCHLOROTHIAZIDE 25 MG TAB PO SCH (08:33)
[2017-07-27] MEDS: AMLODIPINE 10 MG TAB PO SCH (08:33)
== END 2017-07-27 15:10 | disposition home or self-care (01) | DRG 517 ==
LOC: REC 05:46 → EDSTATUS 07:30 → MS1 16:30
PROVIDERS: ADMIT Specialist; ATTEND Specialist
PROC: 01NB0ZZ Release Lumbar Nerve, Open Approach (ICD-10-PCS; principal; 2017-07-22 07:30)
DX: M48.061 Spinal stenosis, lumbar region without neurogenic claudication (principal); E11.42 Type 2 diabetes mellitus with diabetic polyneuropathy; I10 Essential (primary) hypertension; G47.33 Obstructive sleep apnea (adult) (pediatric); G43.909 Migraine, unspecified, not intractable, without status migrainosus; E66.9 Obesity, unspecified; F41.9 Anxiety disorder, unspecified; M25.519 Pain in unspecified shoulder; Z68.37 Body mass index [BMI] 37.0-37.9, adult
CPT/HCPCS: 71010; 72114; 80053; 80061; 82962; 84443; 85025; 86803; 86850; 86900; 86901; 86920; 87086; 87340; 97110; 97116; 97162; 97530; J0131; J0690; J1170; J1644; J1815; J2175; J2405; J2765; J3010; J7042; J7120; J7999